=== PATIENT | male | born 1945 | race Caucasian/White ===

== ENCOUNTER → 2017-04-17 | Outpatient (CLI) | payer OTHER ==
--- NOTE | 2017-04-17 14:31 | DIAGNOSTIC IMAGING REPORT ---
CT SINUSES WITH BRAIN LAB CT DOSE: 285.25 mGycm CLINICAL HISTORY: CHRONIC LARYNGITIS, LARYNX POLYP TECHNIQUE: Helical images were acquired in transverse plane. Coronal and sagittal reformatted images were reviewed. A dose lowering technique was utilized adhering to the principles of ALARA. COMPARISON STUDY: None. FINDINGS: The visualized portions intracranial contents are unremarkable. No orbital masses are visualized. The mastoid air cells are symmetrically aerated. The middle ear cavities appear symmetrically aerated. There is nasal septal deviation to the left. There is pneumatization right middle turbinate. There is no evidence of significant mucosal thickening. The ostiomeatal units are patent bilaterally. The ethmoid notches are unprotected. The sphenoid ethmoidal recesses appear patent. IMPRESSION: 1. No evidence of significant mucosal disease. The ostiomeatal units are patent bilaterally. Electronically signed by: Ralph Russ M.D. 04/17/2017 2:29 PM Dictated Date/Time: 04/17/2017 2:25 PM
== END | disposition home or self-care (01) ==
LOC: C.CTS 14:09
PROVIDERS: ATTEND Otolaryngology
DX: J37.0 Chronic laryngitis (principal); J38.1 Polyp of vocal cord and larynx